=== PATIENT | female | born 1985 | race Two or more races ===

== ENCOUNTER 2018-06-09 15:40 | Day surgery (SDC) | payer OTHER, SELFPAY ==
[2018-06-09 16:27] VITALS: BMI 24.7
[2018-06-09 16:28] VITALS: BP 94/54; TEMP 98.5
[2018-06-09 18:04] LABS: #Eosinphils 0.1 thou/uL (0.0-0.7); #Lymphocytes 1.4 thou/uL (1.20-3.40); #Monocytes 0.8 thou/uL (0.11-0.59); #Neutrophils 5.9 thou/uL (1.40-6.50); %Basophils 0.4 % (0.0-1.0); %Eosinophils 1.6 % (0.0-10.0); %Lymphocytes 16.9 % (21.0-51.0); %Monocytes 9.3 % (0.0-10.0); %Neutrophils 71.8 % (42.0-75.0); Hemoglobin 11.7 g/dL (12.0-16.0); Mean Corpuscular HGB CONC 32.8 g/dL (32.0-36.0); Mean Corpuscular Hemoglobin 28.2 pg (27.0-31.0); Mean Corpuscular Volume 85.9 fL (78.0-98.0); Mean Platelet Volume 7.5 fL (7.4-10.4); Platelet Count 197 thou/uL (130-400); RBC Distribution Width 11.9 % (11.5-14.5); Red Blood Cell (RBC) Count 4.16 mill/uL (4.20-5.40); White Blood Cell (WBC) Count 8.2 thou/uL (4.8-10.8)
--- NOTE | 2018-06-09 18:30 | PDOC.LDHP ---
Labor and Delivery H&P Chief complaint: other (nosebleed) HPI: 32 y/o at 32w2d, patient of Dr. Beaulieu, presents with nosebleed lasting more than 15 mins. Patient reports that she started having nosebleeds about 2 weeks ago after blowing her nose and noticing something flesh colored "pop out. " She has had about 9 nosebleeds since. She has an appointment with ENT tomorrow but came in as instructed because this episode lasted longer than 15 minutes. Bleeding stopped upon arrival to L&D. Denies any other complaints. No VB, LOF, ctx, or decreased FM. No other areas bleeding. ROS neg for HEENT, CV, pulm, GI, , neuro, psych, skin, musculoskeletal, or constitutional symptoms other than mentioned above. OB History Details: 1 SAB Current complications: gestational diabetes Past Medical History: None Current medications: pre- vitamins Previous surgical history: none Allergies/Adverse Reactions: Allergies Allergy/AdvReac Type Severity Reaction Status Date / Time No Known Allergies Allergy Unverified 06/09/18 16:25 Social history: none - Physical Exam Vital signs reviewed and normal: yes General: NAD, resting Lungs: nonlabored breathing Abdomen: gravid Extremeties: no edema FHT: category 1 (130s, mod variability, + accels, no decels) [place] contractions every: occasional episodes of irritability - OB Labs Additional Labs: Laboratory Tests 06/09/18 17:49 WBC 8.2 RBC 4.16 L Hgb 11.7 L Hct 35.7 L MCV 85.9 MCH 28.2 MCHC 32.8 RDW 11.9 Plt Count 197 MPV 7.5 Neutrophils % 71.8 Lymphocytes % 16.9 L Monocytes % 9.3 Eosinophils % 1.6 Basophils % 0.4 Neutrophils # 5.9 Lymphocytes # 1.4 Monocytes # 0.8 H Eosinophils # 0.1 Basophils # 0.0 - Assessment 32 y/o at 32w2d with recurrent nosebleeds and what sounds like possible nasal polyps. Current episode has stopped spontaneously. Labs wnl. status reassuring with reactive NST. - Plan -: D/c home with precautions. Advised to keep all and ENT appointments.
== END 2018-06-09 18:33 | disposition home or self-care (01) ==
LOC: L&D/OP 15:40
PROVIDERS: ATTEND Obstetrics & Gynecology
DX: O99.89 Other specified diseases and conditions complicating pregnancy, childbirth and the puerperium (principal); R04.0 Epistaxis; O24.419 Gestational diabetes mellitus in pregnancy, unspecified control; Z79.899 Other long term (current) drug therapy; Z3A.32 32 weeks gestation of pregnancy
CPT/HCPCS: 36415; 85025; 99282

== ENCOUNTER 2018-07-29 11:12 | Inpatient (IN) | payer BC ==
[~2018-07-29 11:12] MED LIST: Bupivacaine 0.25% HCL 30 ML VIAL ONE
[2018-07-29] MEDS ORDERED: Misoprostol 200 MCG TAB PR PRN (11:52)
[2018-07-29] MEDS ORDERED: Promethazine HCl 25 MG/ML VIAL IM PRN ×2 (11:52→13:18)
[2018-07-29] MEDS ORDERED: Ondansetron PF 4 MG/2 ML Vial IVP PRN ×3 (11:52→20:38)
[2018-07-29] MEDS ORDERED: Butorphanol Tartrate 1 MG/ML VIAL SLOW IVP PRN (11:52)
[2018-07-29] MEDS ORDERED: HYDROcodone/Acetaminophen 5/325 mg Tablet PO PRN ×2 (11:52)
[2018-07-29] MEDS ORDERED: Lidocaine 1% (PF) 30 ML VIAL SC PRN (11:52)
[2018-07-29] MEDS ORDERED: NS / Oxytocin 40 units/1000ml 1,000 ML IV PRN (11:52)
[2018-07-29] MEDS ORDERED: Docusate 100 MG CAP PO PRN (11:52)
[2018-07-29] MEDS ORDERED: Ibuprofen 800 MG TAB PO PRN (11:52)
[2018-07-29] MEDS ORDERED: Diphenoxylate HCl/Atropine Tablet PO PRN ×2 (11:52)
[2018-07-29] MEDS ORDERED: Acetaminophen 500 MG TAB PO PRN (11:52)
[2018-07-29] MEDS ORDERED: Lactated Ringer's 1,000 ML IV SCH (12:00)
[2018-07-29 12:04] VITALS: BMI 27.1
[2018-07-29 12:12] LABS: Hemoglobin 12.7 g/dL (12.0-16.0); Mean Corpuscular HGB CONC 33.6 g/dL (32.0-36.0); Mean Corpuscular Hemoglobin 28.4 pg (27.0-31.0); Mean Corpuscular Volume 84.5 fL (78.0-98.0); Mean Platelet Volume 8.8 fL (7.4-10.4); Platelet Count 190 thou/uL (130-400); RBC Distribution Width 12.8 % (11.5-14.5); Red Blood Cell (RBC) Count 4.47 mill/uL (4.20-5.40); White Blood Cell (WBC) Count 10.9 thou/uL (4.8-10.8)
[2018-07-29] MEDS ORDERED: Fentanyl 4 mcg/Bup 0.1% Cadd 100 ML ONE (12:39)
[2018-07-29 12:47] LABS: HBSAg Index 0.22 S/CO (0-0.99); Hep B Surf Ag Non-Reactive S/CO (NonReactive); Syphilis Antibody Nonreactive (Nonreactive); Syphilis Antibody Index 0.02 S/CO (<1.00 Non-Reactive)
[2018-07-29] MEDS ORDERED: Lactated Ringer's 500 ML IV PRN (13:18)
[2018-07-29] MEDS ORDERED: Eucerin (Mineral Oil/Petrolatum,White) 30 gm Jar TOP PRN (13:18)
[2018-07-29] MEDS ORDERED: Naloxone HCl 0.4 mg/ml Vial IVP PRN ×2 (13:18)
[2018-07-29] MEDS ORDERED: diphenhydrAMINE 50 MG/ML VIAL IVP PRN (13:18)
[2018-07-29] MEDS ORDERED: ePHEDrine/0.9% NaCl/PF SYRINGE 50 mg/10 ml SLOW IVP PRN (13:18)
[2018-07-29] MEDS ORDERED: Acetaminophen 325 MG TAB PO PRN (13:18)
[2018-07-29] MEDS ORDERED: Communication Order-Pharmacy FS SCH (13:30)
[2018-07-29] MEDS ORDERED: Fentanyl 4 mcg/Bupivacaine 0.1% Cassette 100 ML EPIDURAL SCH (13:30)
[2018-07-29] MEDS ORDERED: NS w/ Oxytocin 10 units 500 ML IV SCH (14:15)
[2018-07-29] MEDS ORDERED: Oxytocin 10 UNITS/ML VIAL ONE (19:07)
[2018-07-29] MEDS ORDERED: Preparation H Ointment 28 GM TUBE PR PRN (20:38)
[2018-07-29] MEDS ORDERED: Benzocaine/Menthol 20-0.5% 60 ML CAN TOP PRN (20:38)
[2018-07-29] MEDS ORDERED: Acetaminophen/Codeine 30-300mg Tablet PO PRN (20:38)
[2018-07-29] MEDS ORDERED: Milk Of Magnesia 30 ML UDCUP PO PRN (20:38)
[2018-07-29] MEDS ORDERED: diphenhydrAMINE 25 MG CAP PO PRN (20:38)
[2018-07-29] MEDS ORDERED: Zolpidem Tartrate 5 MG TAB PO PRN (20:38)
[2018-07-29] MEDS ORDERED: Misoprostol 200 MCG TAB VAG PRN (20:38)
[2018-07-29] MEDS ORDERED: Lanolin Ointment 7 GM TUBE TOP PRN (20:38)
[2018-07-29] MEDS ORDERED: Bisacodyl 10 MG SUPP PR PRN (20:38)
[2018-07-29] MEDS ORDERED: NS / Oxytocin 40 units/1000ml 1,000 ML IV SCH (20:45)
[2018-07-29] MEDS: Ibuprofen 800 MG TAB PO SCH (22:57)
[2018-07-29] MEDS: Docusate Calcium (SURFAK) 240 MG CAP PO SCH (22:57)
[2018-07-30] MEDS: Acetaminophen/Codeine 30-300mg Tablet PO PRN ×3 (04:48→22:24)
[2018-07-30] MEDS: Ibuprofen 800 MG TAB PO SCH ×3 (06:24→21:26)
[2018-07-30 06:28] LABS: Hemoglobin 12.2 g/dL (12.0-16.0); Mean Corpuscular HGB CONC 33.3 g/dL (32.0-36.0); Mean Corpuscular Hemoglobin 28.4 pg (27.0-31.0); Mean Corpuscular Volume 85.2 fL (78.0-98.0); Platelet Count 162 thou/uL (130-400); RBC Distribution Width 12.9 % (11.5-14.5); Red Blood Cell (RBC) Count 4.31 mill/uL (4.20-5.40); White Blood Cell (WBC) Count 14.5 thou/uL (4.8-10.8)
[2018-07-30] MEDS ORDERED: Adacel (T-DAP) 0.5 ML VIAL IM ONE (09:00)
[2018-07-30] MEDS: Ferrous Sulfate 325 MG TAB PO SCH ×2 (09:43→22:45)
[2018-07-30] MEDS: Docusate Calcium (SURFAK) 240 MG CAP PO SCH ×2 (09:44→21:26)
[2018-07-30] MEDS: Prenatal Vitamin 1 TAB PO SCH (09:44)
[2018-07-31] MEDS: Ibuprofen 800 MG TAB PO SCH (05:36)
[2018-07-31 08:25] VITALS: BP 120/75; TEMP 98.1
[2018-07-31] MEDS: Docusate Calcium (SURFAK) 240 MG CAP PO SCH (09:00)
[2018-07-31] MEDS: Ferrous Sulfate 325 MG TAB PO SCH (09:00)
[2018-07-31] MEDS: Prenatal Vitamin 1 TAB PO SCH (09:00)
== END 2018-07-31 13:55 | disposition home or self-care (01) | DRG 807 ==
LOC: L&D 11:12 → 3SW 22:07 → EDSTATUS 08-07 10:33
PROVIDERS: ADMIT Obstetrics & Gynecology; ATTEND Obstetrics & Gynecology
PROC: 10E0XZZ Delivery of Products of Conception, External Approach (ICD-10-PCS; principal; 2018-07-29)
PROC: 0KQM0ZZ Repair Perineum Muscle, Open Approach (ICD-10-PCS; 2018-07-29)
PROC: 10907ZC Drainage of Amniotic Fluid, Therapeutic from Products of Conception, Via Natural or Artificial Opening (ICD-10-PCS; 2018-07-29)
DX: O24.420 Gestational diabetes mellitus in childbirth, diet controlled (principal); Z37.0 Single live birth; Z3A.39 39 weeks gestation of pregnancy; O70.1 Second degree perineal laceration during delivery
CPT/HCPCS: 36415; 51702; 85027; 86780; 86850; 86900; 86901; 87340; J2001; J2590; S0020

== ENCOUNTER 2019-04-19 12:28 | Emergency (ER) | payer BC | END 2019-04-19 13:30 | disposition home or self-care (01) | LOC: SCSER 12:28 | DX: S40.812A Abrasion of left upper arm, initial encounter (principal); K52.9 Noninfective gastroenteritis and colitis, unspecified; F32.9 Major depressive disorder, single episode, unspecified; Z79.899 Other long term (current) drug therapy; V89.2XXA Person injured in unspecified motor-vehicle accident, traffic, initial encounter | CPT/HCPCS: 99283 ==